=== PATIENT | male | born 1970 | race Caucasian/White ===

== ENCOUNTER 2016-08-12 16:33 | Emergency (ER) | payer OTHER ==
[2016-08-12] MEDS ORDERED: OXYCODONE HCL 5 MG TABLET ONE (16:58)
[2016-08-12] MEDS ORDERED: IBUPROFEN 800 MG TABLET ONE (17:07)
[2016-08-12] MEDS ORDERED: DIPHTH,PERTUSS(ACELL),TET VAC 0.5 ML VIAL IM V ONE (17:12)
== END 2016-08-12 17:44 | disposition home or self-care (01) ==
LOC: ED 16:33
DX: T25.222A Burn of second degree of left foot, initial encounter (principal); T31.0 Burns involving less than 10% of body surface; Z23 Encounter for immunization; X10.2XXA Contact with fats and cooking oils, initial encounter; Y93.G3 Activity, cooking and baking; Y92.9 Unspecified place or not applicable
CPT/HCPCS: 90715; 90471; 99283 ×2; 16020 ×2; A9270 ×2